=== PATIENT | male | born 1995 | race Two or more races ===

== ENCOUNTER 2022-06-30 17:52 | Emergency (ER) | payer SELFPAY | END 2022-06-30 18:50 | disposition home or self-care (01) | LOC: JD.ED 17:52 | DX: M25.531 Pain in right wrist (principal); M25.532 Pain in left wrist | CPT/HCPCS: 99282; 99283 ==

== ENCOUNTER 2023-05-16 19:46 | Emergency (ER) | payer SELFPAY | END 2023-05-16 23:07 | disposition home or self-care (01) | LOC: JD.ED 19:46 | DX: S82.891A Other fracture of right lower leg, initial encounter for closed fracture (principal); W22.8XXA Striking against or struck by other objects, initial encounter | CPT/HCPCS: 29515; 73610-26-RT; 73610-RT; 99283 ==

== ENCOUNTER 2023-06-28 14:24 | Emergency (ER) | payer SELFPAY | END 2023-06-28 16:16 | disposition home or self-care (01) | LOC: JD.ED 14:24 | DX: S82.51XA Displaced fracture of medial malleolus of right tibia, initial encounter for closed fracture (principal); X50.1XXA Overexertion from prolonged static or awkward postures, initial encounter; Y92.89 Other specified places as the place of occurrence of the external cause; Y99.0 Civilian activity done for income or pay | CPT/HCPCS: 73610-26-RT; 73610-RT; 99283 ==